=== PATIENT | female | born 1965 | race Hispanic/Latino ===

== ENCOUNTER 2018-07-13 10:18 | Inpatient (IN) | payer MEDICAID ==
--- NOTE | 2018-07-13 10:25 | Emergency Department Report ---
ED Neuro Deficit HPI - General Stated Complaint: FACIAL DROOP Time Seen by Provider: 07/13/18 10:20 Source: patient, EMS - History of Present Illness Initial Comments: Patient is 53 years old female with history of diabetes. Patient brought to the emergency room via EMS for possible stroke. Patient's symptoms started while she was driving at approximately 9:30 this morning with dizziness and left facial droop. Patient denied any headache, weakness, numbness other than face on the left side. Patient also denied any bowel or bladder incontinence. Patient does not have any speech difficulty. -: Sudden Location: left face Presenting Symptoms: Present: Facial Droop/Numbness Place: outdoors Severity: moderate Associated Symptoms: denies other symptoms - Related Data Home Medications: Home Medications Medication Instructions Recorded Confirmed Last Taken Metformin HCl [Glucophage] 1,000 mg PO BID 07/13/18 07/13/18 Unknown Sitagliptin Phosphate [Januvia] 100 mg PO DAILY 07/13/18 07/13/18 Unknown Allergies/Adverse Reactions: Allergies Allergy/AdvReac Type Severity Reaction Status Date / Time No Known Allergies Allergy Verified 07/13/18 10:20 ED Review of Systems ROS: Stated complaint: FACIAL DROOP Other details as noted in HPI Comment: All other systems reviewed and negative Constitutional: denies: chills, fever Cardiovascular: denies: chest pain, palpitations Gastrointestinal: denies: abdominal pain, nausea, vomiting, diarrhea, constipation, hematemesis, melena, hematochezia Musculoskeletal: denies: back pain Neurological: vertigo. denies: headache, weakness, numbness, paresthesias, confusion ED Past Medical Hx - Medications Home Medications: Home Medications Medication Instructions Recorded Confirmed Last Taken Type Metformin HCl [Glucophage] 1,000 mg PO BID 07/13/18 07/13/18 Unknown History Sitagliptin Phosphate [Januvia] 100 mg PO DAILY 07/13/18 07/13/18 Unknown History ED Neuro Physical Exam - General Limitations: No Limitations General appearance: alert, in no apparent distress Suspected Stroke: Yes - Head Head exam: Present: atraumatic, normocephalic, normal inspection - Eye Eye exam: Present: normal appearance, PERRL - ENT ENT exam: Present: normal exam, normal orophraynx, mucous membranes moist - Neck Neck exam: Present: normal inspection, full ROM. Absent: tenderness, meningismus, lymphadenopathy, thyromegaly - Respiratory Respiratory exam: Present: normal lung sounds bilaterally - Cardiovascular Cardiovascular Exam: Present: regular rate, normal rhythm, normal heart sounds - GI/Abdominal GI/Abdominal exam: Present: soft, normal bowel sounds. Absent: distended, tenderness, guarding, rebound, rigid, organomegaly, mass, bruit, pulsatile mass, hernia - Extremities Exam Extremities exam: Present: normal inspection, full ROM, normal capillary refill. Absent: tenderness, pedal edema, joint swelling, calf tenderness - Back Exam Back exam: Present: normal inspection, full ROM. Absent: CVA tenderness (R), CVA tenderness (L), muscle spasm, paraspinal tenderness, vertebral tenderness - Neurological Exam Neurological exam: Present: alert, oriented X3, CN II-XII intact - NIHSS Assessment Interval: Baseline 1a. Level of Consciousness: alert/keenly responsive 1b. LOC Questions: answers both correctly 1c. LOC Commands: performs tasks correctly 2. Best Gaze: normal 3. Visual: no visual loss 4. Facial Palsy: partial paralysis 5b. Motor Arm Right: no drift 5a. Motor Arm Left: no drift 6a. Motor Leg Left: no drift 6b. Motor Leg Right: no drift 7. Limb Ataxia: absent 8. Sensory: normal 9. Best Language: no aphasia 10. Dysarthria: normal 11. Extinction/Inattention: no abnormality Total Score: 2 Stroke Severity: Minor Stroke - Psychiatric Psychiatric exam: Present: normal mood - Skin Skin exam: Present: warm, intact, normal color ED Course Vital Signs 07/13/18 07/13/18 07/13/18 10:38 10:54 10:56 Temperature 98.0 F Pulse Rate 92 H 72 92 H Respiratory 18 12 18 Rate Blood Pressure 174/77 Blood Pressure 174/77 [Left] O2 Sat by Pulse 98 98 98 Oximetry 07/13/18 07/13/18 07/13/18 11:00 12:00 13:00 Temperature Pulse Rate 76 74 65 Respiratory 19 18 15 Rate Blood Pressure 138/71 151/104 141/69 Blood Pressure [Left] O2 Sat by Pulse 98 97 99 Oximetry 07/13/18 07/13/18 17:49 18:00 Temperature Pulse Rate 79 79 Respiratory 15 21 Rate Blood Pressure 132/99 130/58 Blood Pressure [Left] O2 Sat by Pulse 98 95 Oximetry - Lab Data Result diagrams: 07/13/18 10:35 07/13/18 10:35 Lab Results 07/13/18 07/13/18 07/13/18 Range/Units 10:35 10:35 10:35 WBC 7.6 (4.5-11.0) K/mm3 RBC 4.65 (3.65-5.03) M/mm3 Hgb 14.0 (10.1-14.3) gm/dl Hct 40.7 (30.3-42.9) % MCV 87 (79-97) fl MCH 30 (28-32) pg MCHC 34 (30-34) % RDW 13.5 (13.2-15.2) % Plt Count 167 (140-440) K/mm3 Lymph % (Auto) 26.7 (13.4-35.0) % [place] % (Auto) 5.4 (0.0-7.3) % Eos % (Auto) 3.1 (0.0-4.3) % Baso % (Auto) 1.1 (0.0-1.8) % Lymph # 2.0 (1.2-5.4) K/mm3 [place] # 0.4 (0.0-0.8) K/mm3 Eos # 0.2 (0.0-0.4) K/mm3 Baso # 0.1 (0.0-0.1) K/mm3 Seg Neutrophils % 63.7 (40.0-70.0) % Seg Neutrophils # 4.8 (1.8-7.7) K/mm3 PT 12.6 (12.2-14.9) Sec. INR 0.89 (0.87-1.13) APTT 24.3 (24.2-36.6) Sec. Thrombin Time 14.1 L (15.1-19.6) Sec. Sodium 137 (137-145) mmol/L Potassium 4.5 (3.6-5.0) mmol/L Chloride 102.1 (98-107) mmol/L Carbon Dioxide 20 L (22-30) mmol/L Anion Gap 19 mmol/L BUN 9 (7-17) mg/dL Creatinine 0.7 (0.7-1.2) mg/dL Estimated GFR > 60 ml/min BUN/Creatinine Ratio 13 % Glucose 174 H (65-100) mg/dL Calcium 9.2 (8.4-10.2) mg/dL Troponin T < 0.010 (0.00-0.029) ng/mL - EKG Data -: EKG Interpreted by Me EKG shows normal: sinus rhythm Rate: normal Interpretation: no acute changes - Radiology Data Radiology results: report reviewed - Medical Decision Making Patient is 53 years old female with history of diabetes. Patient brought to the emergency room via EMS for possible stroke. Patient's symptoms started while she was driving at approximately 9:30 this morning with dizziness and left facial droop. Patient denied any headache, weakness, numbness other than face on the left side. Patient also denied any bowel or bladder incontinence. Patient does not have any speech difficulty. Patient immediately examined by Dr. Joleen Marie from telemetry neurology. Dr. Marie stated that patient is not a TPA candidate that she advised patient to be admitted for a stroke workup. I discussed the patient is Dr. Barraza, he had return of the patient to medical service. Critical Care Time: Yes Critical care time in (mins) excluding proc time.: 30 Critical care attestation.: If time is entered above; I have spent that time in minutes in the direct care of this critically ill patient, excluding procedure time. ED Disposition Clinical Impression: CVA (cerebral vascular accident) Disposition: DC-09 OP ADMIT IP TO THIS HOSP Is pt being admited?: Yes Condition: Stable
[2018-07-13] MEDS ORDERED: ACTIVASE ONE (10:37)
[2018-07-13 10:44] LABS: Basophils # (Auto) 0.1 K/mm3 (0.0-0.1); Basophils % (Auto) 1.1 % (0.0-1.8); Eosinophils # (Auto) 0.2 K/mm3 (0.0-0.4); Eosinophils % (Auto) 3.1 % (0.0-4.3); Hematocrit 40.7 % (30.3-42.9); Lymphocytes % (Auto) 26.7 % (13.4-35.0); Mean Corpuscular HGB Conc 34 % (30-34); Mean Corpuscular Volume 87 fl (79-97); Monocytes # (Auto) 0.4 K/mm3 (0.0-0.8); Monocytes % (Auto) 5.4 % (0.0-7.3); Red Blood Count 4.65 M/mm3 (3.65-5.03); Red Cell Distribution Width 13.5 % (13.2-15.2)
--- NOTE | 2018-07-13 10:45 | Cat Scan Report ---
PROCEDURE: CT HEAD/BRAIN WO CON TECHNIQUE: Computerized tomography of the head was performed without contrast material. CT DOSE LENGTH PRODUCT: 805.4 mGycm HISTORY: neuro deficits <6hrs or sx present upon awakening COMPARISONS: None . FINDINGS: Skull and scalp: Normal . Paranasal sinuses: Normal . Ventricles and subarachnoid spaces: Normal . Cerebrum: No evidence of hemorrhage, acute infarction or mass . Cerebellum and brainstem: No evidence of hemorrhage, acute infarction or mass . Vasculature: Scattered calcifications of the bilateral carotid arteries . IMPRESSION: No acute intracranial abnormality . Negative acute results were discussed with Dr. Melvin at 10:40AM EST on 07/13/18 by [facility] operations [facility] staff. This document is electronically signed by Saida Rocha MD., July 13 2018 10:43:13 AM ET
[2018-07-13 10:57] LABS: INR 0.89 (0.87-1.13); Partial Thromboplastin Time 24.3 Sec. (24.2-36.6)
[2018-07-13 10:58] LABS: Thrombin Time 14.1 Sec. (15.1-19.6)
[2018-07-13 11:08] LABS: BUN/Creatinine Ratio 13; Blood Urea Nitrogen 9 mg/dL (7-17); Calcium 9.2 mg/dL (8.4-10.2); Hemolysis Index 158
[2018-07-13 11:30] LABS: Platelet Count 167 K/mm3 (140-440)
--- NOTE | 2018-07-13 14:34 | Cat Scan Report ---
CTA HEAD: HISTORY: Stroke. TECHNIQUE: Helical CT images after IV contrast with 0.625mm reformations. Sagittal and coronal reformats. Rotational MIP images. 3D volume rendering technique. FINDINGS: The arterial structures of the anterior and posterior circulations are patent throughout. No evidence for stenosis, occlusion or aneurysm. IMPRESSION: Unremarkable CTA head.
--- NOTE | 2018-07-13 15:41 | Cat Scan Report ---
CTA NECK: HISTORY: Stroke. TECHNIQUE: Helical CT following IV contrast. Sagittal and coronal reformatted images. 3D volume rendering technique. Stenosis was calculated using NASCET criteria with the distal ICA being stented diameter. FINDINGS: The visualized aortic arch, innominate artery and proximal bilateral subclavian arteries are widely patent with less than 20% stenosis. Within the right carotid system: Less than 20% stenosis. Within the left carotid system: Less than 20% stenosis. The cervical vertebral arteries are patent with less than 20% stenosis. IMPRESSION: Unremarkable CTA of the neck.
--- NOTE | 2018-07-13 21:06 | Consultation ---
History of Present Illness Consult date: 07/13/18 Reason for Consult: stroke alert Chief complaint: dizziness, facial droop History of present illness: 53 yo female who went to bed last night at 2130 normal, then woke up this morning and felt very dizzy and off balance, then this dizziness worsened around 1000 hrs and she noted left facial droop- came to ED; no h/o stroke; no h/o seizure or migraines Medications and Allergies Allergies Allergy/AdvReac Type Severity Reaction Status Date / Time No Known Allergies Allergy Verified 07/13/18 10:20 Home Medications Medication Instructions Recorded Confirmed Last Taken Type Metformin HCl [Glucophage] 1,000 mg PO BID 07/13/18 07/13/18 Unknown History Sitagliptin Phosphate [Januvia] 100 mg PO DAILY 07/13/18 07/13/18 Unknown Hi story Physical Examination - Vital Signs Vital Signs: Vital Signs Temp Pulse Resp BP Pulse Ox 98.0 F 92 H 18 174/77 98 07/13/18 10:38 07/13/18 10:38 07/13/18 10:38 07/13/18 10:38 07/13/18 10:38 - Assessment Assessment Interval: Baseline - Level of Consciousness 1a. Level of Consciousness: alert/keenly responsive - LOC Questions 1b. LOC Questions: answers both correctly - LOC Command 1c. LOC Commands: performs tasks correctly - Best Gaze 2. Best Gaze: normal - Visual 3. Visual: no visual loss - Facial Palsy 4. Facial Palsy: unilateral complete paralysis - Motor Arm 5a. Motor Arm Left: no drift 5b. Motor Arm Right: no drift - Motor Leg 6a. Motor Leg Left: no drift 6b. Motor Leg Right: no drift - Limb Ataxia 7. Limb Ataxia: absent - Sensory 8. Sensory: mild/moderate sensory loss - Best Language 9. Best Language: no aphasia - Dysarthria 10. Dysarthria: mild/moderate dysarthria - Extinction and Inattention 11. Extinction/Inattention: no abnormality - Scoring Total Score: 5 Stroke Severity: Moderate Stroke Results - Laboratory Findings CBC and BMP: 07/13/18 10:35 07/13/18 10:35 Abnormal Lab Findings: Abnormal Labs 07/13/18 07/13/18 07/13/18 10:35 10:35 18:44 Thrombin Time 14.1 L Carbon Dioxide 20 L Glucose 174 H POC Glucose 268 H - Diagnostic Findings Additional findings: CT head, CTA H/N negative Assessment and Plan [facility] Tele[facility]urology Consult Services Impression: 1. r/o stroke vs lesion Recommendations: - not a tpa candidate due to LKN - not an LVO, no dissection - aspirin now - MRI brain and inpatient w/u with neurology consult d/w ED doc in detail Joleen Marie MD [facility] Metrics: 07/13/18 LKN 2130 door: [id number] ts called [id number] ts connected [id number] Medical Decision Making: - Extensive number of diagnosis or management options are considered above. - Extensive amount of complex data reviewed. - High risk of complication and/or morbidity or mortality are associated with differential diagnostic considerations above. - There may be uncertain outcome and increased probability of prolonged functional impairment or high probability of severe prolonged functional impairment associated with some of these differential diagnosis. Medical Data Reviewed: 1.Data reviewed include clinical labs, radiology, Medical Tests; 2.Tests results discussed w/performing or interpreting physician; 3.Obtaining/reviewing old medical records; 4.Obtaining case history from another source; 5.Independent review of image, tracing or specimen. Patient was informed the Neurology Consult would happen [facility] by way of interactive audio and video telecommunicati
[2018-07-13] MEDS ORDERED: IBUPROFEN PO PRN (21:43)
[2018-07-13] MEDS ORDERED: SODIUM CHLORIDE FLUSH SYRINGE 10 ML IV PRN (21:43)
[2018-07-13] MEDS ORDERED: TYLENOL PO PRN (21:43)
[2018-07-13] MEDS ORDERED: DILAUDID IV PRN (21:43)
[2018-07-13] MEDS ORDERED: ZOFRAN IV PRN (21:43)
[2018-07-13] MEDS ORDERED: SODIUM CHLORIDE FLUSH SYRINGE 10 ML INJ PRN (21:45)
[2018-07-13] MEDS ORDERED: NON-FORMULARY (Sitagliptin Phosphate [Januvia] 100 MG) PO SCH (21:45)
[2018-07-13] MEDS ORDERED: NON-FORMULARY (Metformin Hcl [Glucophage] 1,000 MG) PO SCH (22:00)
[2018-07-13] MEDS ORDERED: LOVENOX SUB-Q SCH (22:00)
[2018-07-13] MEDS: PEPCID PO SCH (22:50)
[2018-07-13] MEDS: ASPIRIN PO SCH (22:50)
[2018-07-13] MEDS: GLUCOPHAGE PO SCH (22:50)
[2018-07-13] MEDS: SODIUM CHLORIDE FLUSH SYRINGE 10 ML IV SCH (22:50)
[2018-07-13] MEDS: PLAVIX PO SCH (22:50)
[2018-07-13] MEDS: TRADJENTA PO SCH (22:50)
[2018-07-13] MEDS: HumaLOG SUB-Q SCH (23:12)
[2018-07-14 06:43] LABS: Basophils # (Auto) 0.1 K/mm3 (0.0-0.1); Eosinophils # (Auto) 0.3 K/mm3 (0.0-0.4); Hematocrit 39.8 % (30.3-42.9); Hemoglobin 13.4 gm/dl (10.1-14.3); Lymphocytes # (Auto) 2.8 K/mm3 (1.2-5.4); Lymphocytes % (Auto) 39.6 % (13.4-35.0); Mean Corpuscular HGB Conc 34 % (30-34); Mean Corpuscular Volume 87 fl (79-97); Monocytes # (Auto) 0.6 K/mm3 (0.0-0.8); Monocytes % (Auto) 8.6 % (0.0-7.3); Platelet Count 272 K/mm3 (140-440); Red Cell Distribution Width 13.5 % (13.2-15.2)
--- NOTE | 2018-07-14 06:45 | Event Note ---
Date: 07/13/18 See H/p in reports L [place] palsy R/o Acute CVA
[2018-07-14 06:52] LABS: Alanine Aminotransferase 31 units/L (7-56); Albumin 3.9 g/dL (3.9-5); BUN/Creatinine Ratio 15; Blood Urea Nitrogen 9 mg/dL (7-17); Calcium 8.8 mg/dL (8.4-10.2); Chol/HDL Ratio 6.09 %; HDL Cholesterol 33 mg/dL (40-59); Hemolysis Index 58; LDL Cholesterol,Direct 140 mg/dL (50-130)
[2018-07-14] MEDS: HumaLOG SUB-Q SCH ×3 (07:46→17:21)
--- NOTE | 2018-07-14 07:52 | History and Physical Report ---
CHIEF COMPLAINT: Facial droop since a.m. HISTORY OF PRESENT ILLNESS: The patient is a 53-year-old female with a history of type 2 diabetes who wakes up this morning with right-sided facial weakness associated with dizziness and unsteadiness while walking. Dizziness has become better over the course of the day. Able to walk, able to use the left upper and left lower extremities. Normal strength. No urinary or bladder incontinence. No nasal regurgitation of fluids. No diplopia. No dysarthria or dysphagia. While swallowing food, the food gets stuck in the left cheek. PAST MEDICAL HISTORY: Significant for type 2 diabetes. CURRENT MEDICATIONS: Metformin and Januvia. PAST SURGICAL HISTORY: None. FAMILY HISTORY: Type 2 diabetes. SOCIAL HISTORY: No drugs. REVIEW OF SYSTEMS: Significant for left facial weakness and dizziness. Otherwise, review of systems is negative. PHYSICAL EXAMINATION: GENERAL: A middle-aged female, cooperative during the examination. VITAL SIGNS: Blood pressure is 148/81 and repeat one is 111/73, temperature is 97.5, pulse is 74, respirations are 18. HEENT: Unremarkable. Pupils equal and reactive. Left lower motor neuron facial paralysis present. The patient also has difficulty closing eyes and making a wrinkle on the left forehead. Total deviation of the mouth to the right side. NECK: Supple, no lymphadenopathy, no thyromegaly. LUNGS: Clear to auscultation and percussion. Good air entry. CARDIOVASCULAR: S1, S2 heard. No gallop, no murmur, no rub. Apical impulse in left fifth intercostal space and midclavicular line. ABDOMEN: Soft and benign. No hepatosplenomegaly. No guarding, no rigidity. Hernial orifices are normal. EXTREMITIES: Good pedal pulses. Power is 5/5 in left upper and left lower extremities. CENTRAL NERVOUS SYSTEM: Left lower motor neuron facial paralysis present. No weakness in the left upper extremity and left lower extremity. Reflexes are normal. Sensory system is normal. LABORATORY DATA: CBC is normal. Electrolytes are normal. Glucose is 268. A1c 5.6. CT of the head is negative. CTA is also negative. No blockages. Unremarkable CT of the neck also. ASSESSMENT AND PLAN: 1. Acute Joyner's palsy. The patient started on prednisone. 2. Acute cerebrovascular accident, unlikely. Cardiovascular accident workup was initiated. The patient does not have any focal deficits. Because of the Teleneurology consult, MRI/MRA, echocardiogram, and neurology consult was initiated. Stroke protocol initiated. 3. Type 2 diabetes, well controlled with Accu-Cheks a.c. and at bedtime and Humalog moderate dose sliding scale. 4. Deep venous thrombosis prophylaxis. Lovenox 40 mg subQ daily. In summary, the patient has Joyner's palsy. Workup for cerebrovascular accident and type 2 diabetes, which is decently controlled. JOB# [id number] COLEEN/LUBA COON
[2018-07-14] MEDS: PLAVIX PO SCH (10:54)
[2018-07-14] MEDS: ASPIRIN PO SCH (10:54)
[2018-07-14] MEDS: GLUCOPHAGE PO SCH ×2 (10:54→17:55)
[2018-07-14] MEDS: TRADJENTA PO SCH (10:54)
[2018-07-14] MEDS: SODIUM CHLORIDE FLUSH SYRINGE 10 ML IV SCH (10:54)
[2018-07-14] MEDS: PEPCID PO SCH (10:54)
--- NOTE | 2018-07-14 10:54 | Progress Note ---
Hospitalist Physical - Constitutional Vitals: Temp Pulse Resp BP Pulse Ox 97.5 F L 68 18 120/74 97 07/14/18 07:37 07/14/18 07:37 07/14/18 07:37 07/14/18 07:37 07/14/18 08:36 Results - Labs CBC & Chem 7: 07/14/18 04:06 07/14/18 04:06 Labs: Laboratory Last Values WBC 7.0 K/mm3 (4.5-11.0) 07/14/18 04:06 RBC 4.60 M/mm3 (3.65-5.03) 07/14/18 04:06 Hgb 13.4 gm/dl (10.1-14.3) 07/14/18 04:06 Hct 39.8 % (30.3-42.9) 07/14/18 04:06 MCV 87 fl (79-97) 07/14/18 04:06 MCH 29 pg (28-32) 07/14/18 04:06 MCHC 34 % (30-34) 07/14/18 04:06 RDW 13.5 % (13.2-15.2) 07/14/18 04:06 Plt Count 272 K/mm3 (140-440) 07/14/18 04:06 Lymph % (Auto) 39.6 % (13.4-35.0) H 07/14/18 04:06 [place] % (Auto) 8.6 % (0.0-7.3) H 07/14/18 04:06 Eos % (Auto) 4.0 % (0.0-4.3) 07/14/18 04:06 Baso % (Auto) 1.0 % (0.0-1.8) 07/14/18 04:06 Lymph # 2.8 K/mm3 (1.2-5.4) 07/14/18 04:06 [place] # 0.6 K/mm3 (0.0-0.8) 07/14/18 04:06 Eos # 0.3 K/mm3 (0.0-0.4) 07/14/18 04:06 Baso # 0.1 K/mm3 (0.0-0.1) 07/14/18 04:06 Seg Neutrophils % 46.8 % (40.0-70.0) 07/14/18 04:06 Seg Neutrophils # 3.3 K/mm3 (1.8-7.7) 07/14/18 04:06 PT 12.6 Sec. (12.2-14.9) 07/13/18 10:35 INR 0.89 (0.87-1.13) 07/13/18 10:35 APTT 24.3 Sec. (24.2-36.6) 07/13/18 10:35 14.1 Sec. (15.1-19.6) L 07/13/18 10:35 Sodium 141 mmol/L (137-145) 07/14/18 04:06 Potassium 4.0 mmol/L (3.6-5.0) 07/14/18 04:06 Chloride 104.7 mmol/L (98-107) 07/14/18 04:06 Carbon Dioxide 21 mmol/L (22-30) L 07/14/18 04:06 19 mmol/L 07/14/18 04:06 BUN 9 mg/dL (7-17) 07/14/18 04:06 0.6 mg/dL (0.7-1.2) L 07/14/18 04:06 Estimated GFR > 60 ml/min 07/14/18 04:06 15 % 07/14/18 04:06 Glucose 54 mg/dL (65-100) L 07/14/18 04:06 POC Glucose 83 (70-105) 07/14/18 07:59 5.6 % (4-6) 07/13/18 10:35 Calcium 8.8 mg/dL (8.4-10.2) 07/14/18 04:06 0.20 mg/dL (0.1-1.2) 07/14/18 04:06 AST 33 units/L (5-40) 07/14/18 04:06 ALT 31 units/L (7-56) 07/14/18 04:06 86 units/L (35-129) 07/14/18 04:06 < 0.010 ng/mL (0.00-0.029) 07/13/18 10:35 6.9 g/dL (6.3-8.2) 07/14/18 04:06 3.9 g/dL (3.9-5) 07/14/18 04:06 1.3 % 07/14/18 04:06 Triglycerides 231 mg/dL (2-149) H 07/14/18 04:06 Cholesterol 201 mg/dL (50-199) H 07/14/18 04:06 140 mg/dL (50-130) H 07/14/18 04:06 33 mg/dL (40-59) L 07/14/18 04:06 6.09 % 07/14/18 04:06 Active Medications - Current Medications Current Medications: Generic Name Dose Route Start Last Admin Trade Name Freq PRN Reason Stop Dose Admin Acetaminophen 650 mg 07/13/18 21:43 Tylenol PO Q4H PRN Pain MILD(1-3)/Fever >100.5/EVANGELISTA Aspirin 325 mg 07/13/18 22:00 07/13/18 22:50 Aspirin PO 325 mg QDAY DEVI Administration Atorvastatin Calcium 40 mg 07/13/18 22:00 07/13/18 22:50 Lipitor PO 40 mg QHS DEVI Administration Clopidogrel Bisulfate 75 mg 07/13/18 22:00 07/13/18 22:50 Plavix PO 75 mg QDAY DEVI Administration Enoxaparin Sodium 40 mg 07/13/18 22:00 07/13/18 22:50 Lovenox SUB-Q 40 mg QDAY@2200 DEVI Administration Famotidine 20 mg 07/13/18 22:00 07/13/18 22:50 Pepcid PO 20 mg BID DEVI Administration Hydromorphone HCl 0.25 mg 07/13/18 21:43 Dilaudid IV Q3H PRN Pain, Moderate (4-6) Ibuprofen 600 mg 07/13/18 21:43 Ibuprofen PO Q6H PRN Pain, Mild (1-3) Insulin Human Lispro 0 unit 07/13/18 22:00 07/14/18 07:46 Humalog SUB-Q Not Given [facility] Protocol Linagliptin 5 mg 07/13/18 21:45 07/13/18 22:50 Tradjenta PO 5 mg DAILY DEVI Administration Metformin HCl 1,000 mg 07/13/18 22:00 07/13/18 22:50 Glucophage PO 1,000 mg BIDDIAB DEVI Administration Ondansetron HCl 4 mg 07/13/18 21:43 Zofran IV Q8H PRN Nausea And Vomiting Sodium Chloride 10 ml 07/13/18 22:00 07/13/18 22:50 Sodium Chloride Flush Syringe 10 Ml IV 10 ml BID DEVI Administration Sodium Chloride 10 ml 07/13/18 21:43 Sodium Chloride Flush Syringe 10 Ml IV PRN PRN LINE FLUSH
--- NOTE | 2018-07-14 13:18 | Vascular Lab Report ---
PROCEDURE: VL CAROTID DUPLEX BILAT TECHNIQUE: Bilateral carotid duplex Doppler ultrasound. Grayscale, color flow and spectral waveform images were obtained. HISTORY: stroke COMPARISON: None FINDINGS: There is a mild degree of atherosclerotic plaque seen bilaterally at carotid bifurcations/carotid bul bs, right more than left. There is no abnormal elevation in flow velocity to indicate any hemodynamically significant stenosis. Specifically, findings correspond to stenoses of less than 50%. Vertebral artery flow is antegrade bilaterally. IMPRESSION: No evidence of any hemodynamically significant stenosis. This document is electronically signed by Octavia Gipson MD., July 14 2018 01:16:34 PM ET
--- NOTE | 2018-07-14 14:51 | Magnetic Resonance Report ---
MRI BRAIN WITHOUT CONTRAST: 07/14/18 CLINICAL: Stroke. COMPARISON: CT head 07/13/18 TECHNIQUE: Axial diffusion, T1, T2, gradient echo T2*, coronal and axial FLAIR and sagittal T1 sequences on a 1.5 Delmy magnet. FINDINGS: The ventricles are normal size. Slightly widened CSF spaces. No restricted diffusion and no abnormal signal on any sequence. No mass or mass effect. No hemorrhage, edema or extra-axial collection. No chronic microbleeds on the gradient echo sequence. Normal pituitary and optic chiasm. The brainstem and cerebellum are normal. Intact vascular flow voids. Mild bilateral ethmoid sinusitis. The orbits, and soft tissues are normal. Normal calvarium and skull base. IMPRESSION: No evidence of acute/subacute infarct or hemorrhage. Mild global cortical atrophy. Mild ethmoid sinusitis.
--- NOTE | 2018-07-14 14:53 | Magnetic Resonance Report ---
MRA HEAD WITHOUT CONTRAST: 07/13/18 17:10:00 CLINICAL: Stroke. TECHNIQUE: Axial 3-D [id number] MR angiography of the [place] with review of axial source images. FINDINGS: Intact [place] with no aneurysm, stenosis or occlusion. Symmetric blood flow in the anterior, middle and posterior cerebral arteries. Normal basilar and vertebral arteries. IMPRESSION: Normal study.
[2018-07-14 17:14] VITALS: BP 150/76
--- NOTE | 2018-07-14 17:46 | Progress Note ---
Assessment and Plan This is a 53 YO F with acute Joyner's palsy. Recommend: Will start Valtrex daily for 7 days. Pt might also benefit from steroids, pt's blood sugars are elevated, will have hospitalist decide on whether or not to give. PT should follow up with PCP and possibly PT for facial stimulation if not resolved in 3-4 weeks. No further inpatient work up recommended. Subjective Date of service: 07/14/18 Interval history: Pt dizziness resolved. Symptoms c/w Joyner's palsy on the left. Objective - Vital Sign Vital Signs - 12hr 07/14/18 07/14/18 07/14/18 07:37 08:36 10:00 Temperature 97.5 F L Pulse Rate 68 Pulse Rate [ 63 From Monitor] Pulse Rate [ 63 Left Radial] Respiratory 18 18 Rate Blood Pressure 120/74 O2 Sat by Pulse 96 97 97 Oximetry 07/14/18 17:07 Temperature 97.5 F L Pulse Rate 62 Pulse Rate [ From Monitor] Pulse Rate [ Left Radial] Respiratory 18 Rate Blood Pressure 150/76 O2 Sat by Pulse 99 Oximetry - General Apperance Constitutional: comfortable - EENT EENT: PERRL, mucous membranes moist - Respiratory Respiratory: lungs clear - Cardiovascular Cardiovascular: regular rate - Gastrointestinal Gastrointestinal: normoactive bowel sounds - Neurologic Cranial nerve examination: PERRL, EOMI, V1/V2/V3 grossly intact, face symmetric, facial droop Speech examination: intact Detailed motor examination: grossly full strength in Reflexes: 1+: ankle, bicep, knee, tricep - Laboratory Findings CBC and BMP: 07/14/18 04:06 07/14/18 04:06 Abnormal Lab Findings: Abnormal Labs 07/13/18 07/13/18 07/13/18 10:35 10:35 18:44 Lymph % (Auto) [place] % (Auto) Thrombin Time 14.1 L Carbon Dioxide 20 L Creatinine Glucose 174 H POC Glucose 268 H Triglycerides Cholesterol LDL Cholesterol Direct HDL Cholesterol 07/13/18 07/14/18 07/14/18 22:00 04:06 04:06 Lymph % (Auto) 39.6 H [place] % (Auto) 8.6 H Thrombin Time Carbon Dioxide 21 L Creatinine 0.6 L Glucose 54 L POC Glucose 265 H Triglycerides 231 H Cholesterol 201 H LDL Cholesterol Direct 140 H HDL Cholesterol 33 L 07/14/18 16:08 Lymph % (Auto) [place] % (Auto) Thrombin Time Carbon Dioxide Creatinine Glucose POC Glucose 122 H Triglycerides Cholesterol LDL Cholesterol Direct HDL Cholesterol - Diagnostic Findings Additional findings: MRI Brain and MRA both without acute change
--- NOTE | 2018-07-14 17:53 | Discharge Summary ---
Providers - Providers Date of Admission: 07/13/18 17:10 Date of discharge: 07/14/18 Attending physician: TINO DAY 07/13/18 Consult to Case Management [CONS] Routine Services Needed at Discharge: Home Health Services 07/13/18 21:43 Consult to Physician [CONS] Routine Comment: Consulting Provider: GIANNA ELI Physician Instructions: Reason For Exam: CVA 07/13/18 21:45 Occupational Therapy Evaluate and Treat [CONS] Routine Comment: Reason For Exam: Neuro deficits Physical Therapy Evaluation and Treat [CONS] Routine Comment: Reason For Exam: Neuro deficits 07/14/18 08:17 Speech Therapy Evaluation and Treat [CONS] Routine Reason For Exam: weakness left part of face Primary care physician: [facility] KIRA CHENG MD Hospitalization Condition: Fair Hospital course: Patient is 53 yo with diabetes presented with sudden left facial weakness. She was seen and evaluated in Emergency Department. CT head was unremarkable. She was given aspirin and admitted to rule out stroke. MRI Brain was negative for stroke. She was seen by Neurologist diagnoed her with acute [place] palsy and recommended Valtrex and Prednisone, so patient was discharged home on both. Stroke was ruled out. Disposition: DC- TO HOME OR SELFCARE - Discharge Diagnoses (1) Joyner's palsy Status: Acute (2) Hyperlipidemia Status: Acute (3) Diabetes mellitus Status: Acute Core Measure Documentation - Palliative Care Palliative Care/ Comfort Measures: Not Applicable - Core Measures Any of the following diagnoses?: none Exam - Constitutional Vitals: Temp Pulse Resp BP Pulse Ox 97.5 F L 62 18 150/76 99 07/14/18 17:07 07/14/18 17:07 07/14/18 17:07 07/14/18 17:07 07/14/18 17:07 Plan Activity: no restrictions Diet: low fat, low cholesterol, low salt Additional Instructions: 1.Follow up with PCP or Akosua gustafson in 1 week. 2.Outpatient physical therapy for facial stimulation. 3.Follow up with outpatient Neurology in 1 week Follow up with: AKOSUA MINER MD [Primary Care Provider] - 3-5 Days Prescriptions: predniSONE [Deltasone] 20 mg PO PRN #21 tab AtorvaSTATin [Lipitor] 40 mg PO QHS #30 tab Famotidine [Pepcid] 20 mg PO BID #30 tablet valACYclovir [Valtrex] 1,000 mg PO QDAY #7 tablet Other Discharge Orders: Physicial Therapy (Amb) Location: None Selected
[2018-07-14] MEDS ORDERED: VALTREX PO SCH (18:00)
[2018-07-14] MEDS ORDERED: DELTASONE PO STA (18:08)
== END 2018-07-14 20:47 | disposition home or self-care (01) | DRG 74 ==
LOC: ED 10:18 → 4A 17:10
PROVIDERS: ADMIT Internal Medicine; ATTEND Internal Medicine
DX: G51.0 Bell's palsy (principal); E11.9 Type 2 diabetes mellitus without complications; Z83.3 Family history of diabetes mellitus
CPT/HCPCS: 36415; 70450; 70496; 70498; 70544; 70551; 80048; 80053; 80061; 82962; 83036; 84484; 85025; 85610; 85670; 85730; 93005; 93010; 93880; G0378; A9270-GY; J1650; J1815; J2997; J7512; Q9967

== ENCOUNTER 2019-11-08 07:36 | Outpatient (CLI) | payer MEDICAID ==
[2019-11-05 11:21] LABS: Blood Urea Nitrogen 7 mg/dL (7-17)
--- NOTE | 2019-11-08 11:29 | Cat Scan Report ---
CT neck wo con INDICATION / CLINICAL INFORMATION: 54 years Female; LOCALIZED SWELLING IN NECK AND HEAD. Contrast was not administered, as access was un obtainable TECHNIQUE: Contiguous thin cut axial images obtained through the neck. Sagittal and coronal reconstructions perf ormed by the technologist. All CT scans at this location are performed using CT dose reduction for AL SUSAN by means of automated exposure control. COMPARISON: None available. FINDINGS: No evidence of metallic marker or vitamin E capsule to denote an area of interest. MUCOSAL SPACE: The nasopharynx, oropharynx and vallecula, oral cavity and floor of mouth, hypopharynx , and larynx are grossly normal. LYMPH NODES: No significant adenopathy appreciated. SALIVARY GLANDS: There is a somewhat irregularly shaped soft tissue lesion in the right parotid gland , involving superficial and deep portions. Neoplasm in this region, such as mucoepidermoid carcinoma or perhaps adenoid cystic carcinoma, could be considered. Pre and postcontrast MRI of the neck would be helpful for further evaluation, given the improved soft tissue resolution by that modality. Note, portion of the lesion extends to within 5 mm of the skin surface in the posterior, superficial paroti d, should biopsy be needed. Submandibular and visualized sublingual glands are within normal limits. Punctate calcifications seen in the deep portions of both parotid glands-sialoliths would be a consideration. THYROID GLAND: Unremarkable. PARANASAL SINUSES: Partial opacification of the ethmoids noted. SPINE: There is kyphosis of the cervical spine, centered about the C4 level. Disc space narrowing see n at C4-5 and C3-4. There is osseous foraminal narrowing on the left at C4-5, related uncinate hypert rophy. Modic type III changes are seen at C4-5 as well. Borderline canal narrowing seen at C4-5. If c linically warranted, MRI of the cervical spine would be helpful in evaluating the cervical cord in th is region. VASCULAR STRUCTURES: Vascular structures are unenhanced, but grossly normal in appearance. ADDITIONAL FINDINGS: Poor dentition noted. There may be vague increased interstitial markings in the subcutaneous, fatty soft tissues of the fac ial regions bilaterally, of uncertain clinical significance. IMPRESSION: 1. Right parotid lesion as described above. Pre and postcontrast MRI of the neck may be helpful for f urther evaluation. 2. Degenerative changes of the cervical spine, as described above. Signer Name: Izaiah Leggett MD, III Signed: 11/08/2019 11:25 AM Workstation Name: [id number]
== END 2019-11-08 07:37 | disposition home or self-care (01) ==
LOC: CT 07:36
PROVIDERS: ATTEND Otolaryngology
DX: K11.8 Other diseases of salivary glands (principal); M48.02 Spinal stenosis, cervical region; M40.292 Other kyphosis, cervical region; R22.0 Localized swelling, mass and lump, head
CPT/HCPCS: 36415; 70490; 82565; 84520